=== PATIENT | female | born 1960 ===

== ENCOUNTER 2020-02-13 10:25 | Day surgery (SDC) | payer OTHER | END 2020-02-13 16:05 | disposition home or self-care (01) | LOC: AMB-ENDOS 10:25 | PROVIDERS: ATTEND Surgery | DX: D12.2 Benign neoplasm of ascending colon (principal); D12.4 Benign neoplasm of descending colon; K64.8 Other hemorrhoids; Z20.828 Contact with and (suspected) exposure to other viral communicable diseases ==